=== PATIENT | male | born 1980 | race Caucasian/White ===

== ENCOUNTER 2017-06-06 20:15 | Emergency (ER) | payer OTHER ==
[~2017-06-06] VITALS: Ht 172.7 cm; Wt 75.0 kg
[~2017-06-06 20:15] MED LIST: FLUTI220I INH; PRED20 PO; ZITH250T PO
[2017-06-06 20:41] VITALS: BP 124/85; PULSE 90; RESP 18; O2SAT 95
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
[2017-06-06] MEDS ORDERED: TETANUS/DIPHTHERIA TOXOID ADULT 0.5 ML VIAL IM ONE (21:00)
--- NOTE | 2017-06-06 22:04 | RADRPT ---
EXAM DATE/TIME: 06/06/2017 21:30 [facility] COMPARISON: No previous studies available for comparison. INDICATIONS : Neck pain; no trauma. RADIATION DOSE: 15.60 CTDIvol (mGy) MEDICAL HISTORY : Asthma SURGICAL HISTORY : None. ENCOUNTER: Initial ACUITY: 1 day PAIN SCALE: 5/10 LOCATION: neck TECHNIQUE: Volumetric scanning of the cervical spine was performed. Multiplanar reconstructions in the sagittal, coronal and oblique axial planes were performed. Using automated exposure control and adjustment o f the mA and/or kV according to patient size, radiation dose was kept as low as reasonably achievable to obtain optimal diagnostic quality images. DICOM format image data is available electronically f or review and comparison. FINDINGS: VERTEBRAE: Normal vertebral body height. ALIGNMENT: No evidence of subluxation. C2-C3: The bony spinal canal is normal in size. No evidence of disc bulge or herniation. The neural forami na are bilaterally patent. C3-C4: The bony spinal canal is normal in size. No evidence of disc bulge or herniation. The neural forami na are bilaterally patent. C4-C5: The bony spinal canal is normal in size. No evidence of disc bulge or herniation. The neural forami na are bilaterally patent. C5-C6: The bony spinal canal is normal in size. No evidence of disc bulge or herniation. The neural forami na are bilaterally patent. C6-C7: The bony spinal canal is normal in size. No evidence of disc bulge or herniation. The neural forami na are bilaterally patent. C7-T1: The bony spinal canal is normal in size. No evidence of disc bulge or herniation. The neural forami na are bilaterally patent. CONCLUSION: Normal examination. Clarke Horton MD on June 06, 2017 at 22:00 Board Certified Radiologist. This report was verified electronically.
--- NOTE | 2017-06-06 22:06 | RADRPT ---
EXAM DATE/TIME: 06/06/2017 21:30 [facility] COMPARISON: No previous studies available for comparison. INDICATIONS : Headache. RADIATION DOSE: 56.35 CTDIvol (mGy) MEDICAL HISTORY : Asthma SURGICAL HISTORY : None. ENCOUNTER: Initial ACUITY: 1 day PAIN SCALE: 5/10 LOCATION: cranial TECHNIQUE: Multiple contiguous axial images were obtained of the head. Using automated exposure control and adj ustment of the mA and/or kV according to patient size, radiation dose was kept as low as reasonably a chievable to obtain optimal diagnostic quality images. DICOM format image data is available electro nically for review and comparison. FINDINGS: CEREBRUM: The ventricles are normal for age. No evidence of midline shift, mass lesion, hemorrhage or acute in farction. No extra-axial fluid collections are seen. POSTERIOR FOSSA: The cerebellum and brainstem are intact. The 4th ventricle is midline. The cerebellopontine angle i s unremarkable. EXTRACRANIAL: The visualized portion of the orbits is intact. SKULL: The calvaria is intact. No evidence of skull fracture. CONCLUSION: Normal examination for a patient of this age. Clarke Horton MD on June 06, 2017 at 22:02 Board Certified Radiologist. This report was verified electronically.
== END 2017-06-06 22:25 ==
LOC: NEPD 20:15
DX: S00.01XA Abrasion of scalp, initial encounter (principal); Y08.89XA Assault by other specified means, initial encounter; Z23 Encounter for immunization; Z72.0 Tobacco use
CPT/HCPCS: 70450; 72125; 90471; 90714

== ENCOUNTER 2017-08-31 21:20 | Emergency (ER) | payer SELFPAY ==
[~2017-08-31] VITALS: Ht 175.3 cm; Wt 70.0 kg
[2017-08-31 22:00] VITALS: BP 123/80; PULSE 91; RESP 16; TEMP 98.1; O2SAT 97
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
[2017-08-31] MEDS ORDERED: NAPROXEN 500 MG TAB PO ONE (23:15)
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
== END 2017-09-01 01:01 | disposition home or self-care (01) ==
LOC: NEPC 21:20
DX: S80.12XA Contusion of left lower leg, initial encounter (principal); Y04.0XXA Assault by unarmed brawl or fight, initial encounter
CPT/HCPCS: 73590; 93971